=== PATIENT | male | born 1950 | race Caucasian/White ===

== ENCOUNTER 2024-04-07 15:53 | Inpatient (IN) | payer MEDICARE ==
[~2024-04-07] VITALS: Ht 177.8 cm; Wt 74.8 kg
[2024-04-07] MEDS ORDERED: OXYC1TAB12 PO (16:33)
[2024-04-07] MEDS ORDERED: CALC100067 PO (16:33)
[2024-04-07] MEDS ORDERED: TAMS-3 PO (16:33)
[2024-04-07] MEDS ORDERED: OXYC-875 PO (16:33)
[2024-04-07] MEDS ORDERED: METRONIDAZOLE 500 MG/NS 100ML 100 ML IV ONE (17:10)
[2024-04-07 17:15] LABS: BASOPHILS # (AUTO) 0.1 K/UL (0.0-0.2); BASOPHILS % (AUTO) 0.3 % (0.0-2.0); DIFFERENTIAL COMMENT 1; EOSINOPHILS # (AUTO) 0.2 K/uL (0.0-0.7); EOSINOPHILS % (AUTO) 0.6 % (0.0-7.0); HEMATOCRIT 25.2 % (36.7-47.1); HEMOGLOBIN 8.2 g/dL (12.5-16.3); MEAN CORPUSCULAR HEMOGLOBIN 26.3 uug (23.8-33.4); MEAN CORPUSCULAR HGB CONC 33 g/dL (32.5-36.3); MEAN CORPUSCULAR VOLUME 80.4 fL (73.0-96.2); MONOCYTES # (AUTO) 1.5 K/uL (0.1-1.30); MONOCYTES % (AUTO) 5.9 % (0.0-11.0); NEUTROPHILS # (AUTO) 23.4 K/uL (1.8-8.9); NEUTROPHILS % (AUTO) 89.2 % (38.5-71.5); PLATELET COUNT (AUTO) 316 K/uL (152-348); RED BLOOD CELL COUNT(AUTO) 3.14 MIL/uL (4.06-5.63); WHITE BLOOD COUNT (AUTO) 26.2 K/uL (3.6-10.2)
[2024-04-07] MEDS: METRONIDAZOLE 500 MG/NS 100 ML PIGGYBACK IV ONE (17:19)
[2024-04-07 17:26] LABS: AMMONIA 16 umol/L (11-32)
[2024-04-07 17:35] LABS: ETHANOL < 3 MG/DL (0-10)
[2024-04-07 17:39] LABS: CALCIUM 7.6 mg/dL (8.5-10.1); CARBON DIOXIDE 21 mmol/L (21-32); CHLORIDE 107 mmol/L (98-107); GLUCOSE 91 mg/dL (74-106); SODIUM SERUM 142 mmol/L (136-145)
[2024-04-07 17:42] LABS: POTASSIUM 6.9 mmol/L (3.5-5.1)
[2024-04-07 17:43] LABS: ACETAMINOPHEN 2.2 ug/mL (10-30); ALANINE AMINOTRANSFERASE < 6 U/L (16-63); ALBUMIN 1.7 g/dL (3.4-5.0); ALKALINE PHOSPHATASE 89 U/L (50-136); ASPARTATE AMINOTRANSFERASE 34 U/L (15-37); BILIRUBIN,DIRECT 0.1 mg/dL (0.0-0.2); CREATININE 8.8 mg/dL (0.6-1.3); TOTAL PROTEIN, SERUM 5.7 g/dL (6.4-8.2); UREA NITROGEN, BLOOD 106 mg/dL (7-18)
[2024-04-07 17:55] LABS: *BILIRUBIN,URIN NEGATIVE (NEGATIVE); *BLOOD, URINE 2+ (NEGATIVE); *CLARITY,URINE CLEAR (CLEAR); *COLOR,URINE YELLOW (YELLOW); *KETONES,URINE NEGATIVE (NEGATIVE); *PROTEIN,URINE NEGATIVE (NEGATIVE); *UROBILINOGEN,URINE 0.2 E.U./dl (NORMAL); LEUKOCYTE ESTERASE ,URINE NEGATIVE (NEGATIVE); NITRITE, URINE NEGATIVE (NEGATIVE); UGLUCOSE NEGATIVE (NEGATIVE)
[2024-04-07] MEDS ORDERED: ALBUTEROL SULFATE 2.5 MG/3 ML NEBU ONE (17:55)
[2024-04-07 17:58] LABS: WBC,URINE 0-3 /HPF (0-3)
[2024-04-07] MEDS: ALBUTEROL SULFATE 2.5 MG/3 ML NEBU NEB ONE (18:01)
[2024-04-07 18:03] VITALS: O2SAT 94
[2024-04-07 18:03] LABS: *AMPHETAMINE, URINE NEGATIVE (NEGATIVE); *BARBITURATE, URINE NEGATIVE (NEGATIVE); *BENZODIAZEPINE, URINE NEGATIVE (NEGATIVE); *CANNABINOID, URINE NEGATIVE (NEGATIVE); *COCCAINE, URINE NEGATIVE (NEGATIVE); *OPIATE, URINE POSITIVE (NEGATIVE); *PHENCYCLIDINE SCREEN,URINE NEGATIVE (NEGATIVE); FENTANYL, URINE NEGATIVE (NEGATIVE)
[2024-04-07] MEDS ORDERED: SODIUM POLYSTYRENE SULFONATE 15 G/60 ML LIQUID UDC ONE ×2 (18:09→18:12)
[2024-04-07] MEDS ORDERED: FUROSEMIDE 20 MG/2 ML VIAL ONE (18:09)
[2024-04-07] MEDS ORDERED: DEXTROSE 50% 50 ML DISP.SYRIN ONE (18:09)
[2024-04-07] MEDS ORDERED: SODIUM BICARBONATE 8.4% 50 MEQ/50 ML DISP.SYRIN IV ONE (18:09)
[2024-04-07] MEDS ORDERED: INSULIN REGULAR, HUMAN 1000 UNIT/10 ML VIAL ONE (18:10)
[2024-04-07 18:12] LABS: BILIRUBIN,TOTAL 0.4 mg/dL (0.2-1.0)
[2024-04-07] MEDS ORDERED: HALOPERIDOL LACTATE 5 MG/1 ML VIAL ONE (18:13)
[2024-04-07] MEDS ORDERED: diphenhydrAMINE 50 MG/1 ML VIAL ONE (18:13)
[2024-04-07] MEDS ORDERED: LORAZEPAM 2 MG/1 ML VIAL ONE (18:14)
[2024-04-07] MEDS: diphenhydrAMINE 50 MG/1 ML VIAL IV ONE (18:15)
[2024-04-07] MEDS: HALOPERIDOL LACTATE 5 MG/1 ML VIAL IV ONE (18:15)
[2024-04-07] MEDS: LORAZEPAM 2 MG/1 ML VIAL IV ONE (18:15)
[2024-04-07] MEDS ORDERED: ENOXAPARIN SODIUM 40 MG/0.4 ML DISP.SYRIN SQ SCH (18:30)
[2024-04-07] MEDS: FUROSEMIDE 20 MG/2 ML VIAL IVP ONE (18:30)
[2024-04-07] MEDS: DEXTROSE 50% 50 ML DISP.SYRIN IV ONE (18:30)
[2024-04-07] MEDS: SODIUM BICARBONATE 8.4% 50 MEQ/50 ML DISP.SYRIN IV ONE (18:30)
[2024-04-07] MEDS ORDERED: REMEDY ESSENTIAL ZINC PASTE 113 GM TP PRN (18:30)
[2024-04-07] MEDS ORDERED: ACETAMINOPHEN 325 MG TABLET PO PRN (18:30)
[2024-04-07] MEDS ORDERED: ONDANSETRON 4 MG/2 ML VIAL IV PRN (18:30)
[2024-04-07] MEDS ORDERED: MAGNESIUM HYDROXIDE 30 ML LIQUID UDC PO PRN (18:30)
[2024-04-07] MEDS: SODIUM POLYSTYRENE SULFONATE 15 G/60 ML LIQUID UDC PO ONE (18:31)
[2024-04-07] MEDS ORDERED: MEROPENEM 1GM/NS 100ML IVPB **ER PYXIS ONLY IV ONE (18:33)
[2024-04-07] MEDS: INSULIN REGULAR, HUMAN 1000 UNIT/10 ML VIAL IV ONE (18:33)
[2024-04-07] MEDS: MEROPENEM 1,000 MG in IV NORMAL SALINE 100 ML IV ONE (18:40)
[2024-04-07] MEDS: IV NORMAL SALINE 500 ML IV ONE ×2 (19:01→19:37)
[2024-04-07 19:53] LABS: CALCIUM 7.7 mg/dL (8.5-10.1); CARBON DIOXIDE 23 mmol/L (21-32); CHLORIDE 110 mmol/L (98-107); GLUCOSE 97 mg/dL (74-106); POTASSIUM 5.7 mmol/L (3.5-5.1); SODIUM SERUM 147 mmol/L (136-145)
[2024-04-07 19:55] LABS: CREATININE 8.2 mg/dL (0.6-1.3); UREA NITROGEN, BLOOD 101 mg/dL (7-18)
[2024-04-07 20:40] VITALS: O2SAT 98
[2024-04-07 21:30] VITALS: BP 105/52
[2024-04-07 22:00] VITALS: BP 95/51; TEMP 97.1
[2024-04-07] MEDS ORDERED: METRONIDAZOLE 500 MG/NS 100ML 200 ML IV ONE (22:35)
[2024-04-07] MEDS: IV NS 1000 ML 1,000 ML IV PRN (22:37)
[2024-04-07] MEDS: METRONIDAZOLE 500 MG/NS 100ML 500 MG in PREMIXED 1 EACH IV SCH (22:50)
[2024-04-07 23:00] VITALS: BP 108/52
[2024-04-08] VITALS (20 sets, daily range): BP systolic 102–143; BP diastolic 53–99; TEMP 97.1–98.6; O2SAT 94–98
[2024-04-08 05:29] LABS: BASOPHILS # (AUTO) 0.1 K/UL (0.0-0.2); BASOPHILS % (AUTO) 0.3 % (0.0-2.0); EOSINOPHILS # (AUTO) 0.1 K/uL (0.0-0.7); EOSINOPHILS % (AUTO) 0.5 % (0.0-7.0); HEMATOCRIT 25.1 % (36.7-47.1); HEMOGLOBIN 8.4 g/dL (12.5-16.3); LYMPHOCYTES # (AUTO) 0.9 K/uL (0.8-4.8); LYMPHOCYTES % (AUTO) 3.6 % (20.5-51.5); MEAN CORPUSCULAR HEMOGLOBIN 26.8 uug (23.8-33.4); MEAN CORPUSCULAR HGB CONC 34 g/dL (32.5-36.3); MEAN CORPUSCULAR VOLUME 79.9 fL (73.0-96.2); MONOCYTES # (AUTO) 1.2 K/uL (0.1-1.30); MONOCYTES % (AUTO) 4.9 % (0.0-11.0); NEUTROPHILS # (AUTO) 22.1 K/uL (1.8-8.9); NEUTROPHILS % (AUTO) 90.7 % (38.5-71.5); PLATELET COUNT (AUTO) 323 K/uL (152-348); RED BLOOD CELL COUNT(AUTO) 3.14 MIL/uL (4.06-5.63); RED CELL DISTRIBUTION WIDTH 19.6 % (12.1-16.2); WHITE BLOOD COUNT (AUTO) 24.4 K/uL (3.6-10.2)
[2024-04-08 05:53] LABS: CALCIUM 7.4 mg/dL (8.5-10.1); CARBON DIOXIDE 24 mmol/L (21-32); CHLORIDE 114 mmol/L (98-107); CREATININE 5.5 mg/dL (0.6-1.3); GLUCOSE 73 mg/dL (74-106); MAGNESIUM 2.1 mg/dL (1.8-2.4); PHOSPHOROUS 6.6 mg/dL (2.5-4.9); POTASSIUM 4.7 mmol/L (3.5-5.1); SODIUM SERUM 148 mmol/L (136-145); UREA NITROGEN, BLOOD 77 mg/dL (7-18)
[2024-04-08 06:04] LABS: DIFFERENTIAL COMMENT 1
[2024-04-08] MEDS ORDERED: ENOXAPARIN SODIUM 30 MG/0.3 ML DISP.SYRIN SUBCUT SCH (09:00)
[2024-04-08] MEDS: ENOXAPARIN SODIUM 30 MG/0.3 ML DISP.SYRIN SUBCUT SCH (10:44)
[2024-04-08 15:34] LABS: CALCIUM 7.5 mg/dL (8.5-10.1); CARBON DIOXIDE 24 mmol/L (21-32); CHLORIDE 115 mmol/L (98-107); CREATININE 3.6 mg/dL (0.6-1.3); GLUCOSE 96 mg/dL (74-106); POTASSIUM 4.1 mmol/L (3.5-5.1); SODIUM SERUM 153 mmol/L (136-145); UREA NITROGEN, BLOOD 55 mg/dL (7-18)
[2024-04-08] MEDS ORDERED: POLY17PO4 PO (16:58)
[2024-04-08] MEDS ORDERED: CALC117719 PO (17:02)
[2024-04-08] MEDS ORDERED: OXYCODONE/APAP 5-325 MG TABLET PO PRN (17:15)
[2024-04-08] MEDS ORDERED: MEROPENEM 1 G in IV NORMAL SALINE 100 ML IV SCH ×2 (18:00→21:00)
[2024-04-08] MEDS: IV 1/2NS 1000 ML 1,000 ML IV PRN (18:02)
[2024-04-08] MEDS: MEROPENEM 500 MG in IV NORMAL SALINE 50 ML IV SCH (20:07)
[2024-04-08] MEDS: LORAZEPAM 2 MG/1 ML VIAL IV PRN (23:43)
[2024-04-09] VITALS (15 sets, daily range): BP systolic 113–154; BP diastolic 55–124; TEMP 97.1–98.5; O2SAT 93–100
[2024-04-09 05:13] LABS: BASOPHILS # (AUTO) 0.1 K/UL (0.0-0.2); BASOPHILS % (AUTO) 0.3 % (0.0-2.0); EOSINOPHILS # (AUTO) 0.1 K/uL (0.0-0.7); EOSINOPHILS % (AUTO) 0.6 % (0.0-7.0); HEMATOCRIT 26.6 % (36.7-47.1); HEMOGLOBIN 8.6 g/dL (12.5-16.3); LYMPHOCYTES # (AUTO) 1.1 K/uL (0.8-4.8); LYMPHOCYTES % (AUTO) 4.7 % (20.5-51.5); MEAN CORPUSCULAR HEMOGLOBIN 26.5 uug (23.8-33.4); MEAN CORPUSCULAR HGB CONC 32 g/dL (32.5-36.3); MEAN CORPUSCULAR VOLUME 81.7 fL (73.0-96.2); MONOCYTES % (AUTO) 4.4 % (0.0-11.0); NEUTROPHILS # (AUTO) 20.7 K/uL (1.8-8.9); PLATELET COUNT (AUTO) 324 K/uL (152-348); RED BLOOD CELL COUNT(AUTO) 3.25 MIL/uL (4.06-5.63); RED CELL DISTRIBUTION WIDTH 19.7 % (12.1-16.2)
[2024-04-09 05:21] LABS: DIFFERENTIAL COMMENT 1
[2024-04-09 05:29] LABS: CALCIUM 7.4 mg/dL (8.5-10.1); CARBON DIOXIDE 24 mmol/L (21-32); CHLORIDE 118 mmol/L (98-107); CREATININE 2.1 mg/dL (0.6-1.3); GLUCOSE 65 mg/dL (74-106); MAGNESIUM 1.8 mg/dL (1.8-2.4); PHOSPHOROUS 3.8 mg/dL (2.5-4.9); POTASSIUM 3.7 mmol/L (3.5-5.1); SODIUM SERUM 152 mmol/L (136-145); UREA NITROGEN, BLOOD 37 mg/dL (7-18)
[2024-04-09] MEDS ORDERED: IV D5W 1000ML 1,000 ML IV ONE (08:00)
[2024-04-09] MEDS: IV D5W 1000ML 1,000 ML IV ONE (08:38)
[2024-04-09] MEDS: HEPARIN SODIUM,PORCINE 5,000 UNITS/ML VIAL SQ SCH (08:39)
[2024-04-09] MEDS: TAMSULOSIN HCL 0.4 MG CAP.SR.24H PO SCH (08:40)
[2024-04-09] MEDS: QUETIAPINE FUMARATE 25 MG TABLET PO PRN (17:23)
[2024-04-10] VITALS (9 sets, daily range): BP systolic 119–149; BP diastolic 65–78; TEMP 97–98.6; O2SAT 91–98
[2024-04-10 05:14] LABS: BASOPHILS # (AUTO) 0.1 K/UL (0.0-0.2); BASOPHILS % (AUTO) 0.2 % (0.0-2.0); EOSINOPHILS # (AUTO) 0.2 K/uL (0.0-0.7); EOSINOPHILS % (AUTO) 1.1 % (0.0-7.0); HEMATOCRIT 28.5 % (36.7-47.1); HEMOGLOBIN 9.3 g/dL (12.5-16.3); LYMPHOCYTES % (AUTO) 4.5 % (20.5-51.5); MEAN CORPUSCULAR HEMOGLOBIN 26.3 uug (23.8-33.4); MEAN CORPUSCULAR HGB CONC 33 g/dL (32.5-36.3); MEAN CORPUSCULAR VOLUME 80.5 fL (73.0-96.2); MONOCYTES # (AUTO) 1.3 K/uL (0.1-1.30); MONOCYTES % (AUTO) 5.9 % (0.0-11.0); NEUTROPHILS # (AUTO) 18.6 K/uL (1.8-8.9); NEUTROPHILS % (AUTO) 88.3 % (38.5-71.5); PLATELET COUNT (AUTO) 342 K/uL (152-348); RED BLOOD CELL COUNT(AUTO) 3.54 MIL/uL (4.06-5.63); RED CELL DISTRIBUTION WIDTH 19.1 % (12.1-16.2); WHITE BLOOD COUNT (AUTO) 21.1 K/uL (3.6-10.2)
[2024-04-10 05:30] LABS: DIFFERENTIAL COMMENT 1
[2024-04-10 05:38] LABS: CALCIUM 7.3 mg/dL (8.5-10.1); CARBON DIOXIDE 24 mmol/L (21-32); CHLORIDE 113 mmol/L (98-107); CREATININE 1.3 mg/dL (0.6-1.3); GLUCOSE 86 mg/dL (74-106); MAGNESIUM 1.6 mg/dL (1.8-2.4); PHOSPHOROUS 2.1 mg/dL (2.5-4.9); POTASSIUM 3.5 mmol/L (3.5-5.1); SODIUM SERUM 145 mmol/L (136-145); UREA NITROGEN, BLOOD 23 mg/dL (7-18)
[2024-04-10] MEDS: MAGNESIUM SULFATE/D5W 100 ML IV SCH (10:05)
[2024-04-10] MEDS: MEROPENEM 1 G in IV NORMAL SALINE 100 ML IV SCH (15:38)
[2024-04-10] MEDS: NEUTRA PHOS PACKET PO ONE (17:16)
[2024-04-10] MEDS: TAMSULOSIN HCL 0.4 MG CAP.SR.24H PO SCH (21:24)
[2024-04-11 04:00] VITALS: BP 127/72; O2SAT 95
[2024-04-11 06:20] LABS: CALCIUM 7.2 mg/dL (8.5-10.1); CARBON DIOXIDE 23 mmol/L (21-32); CHLORIDE 111 mmol/L (98-107); CREATININE 1.1 mg/dL (0.6-1.3); GLUCOSE 79 mg/dL (74-106); MAGNESIUM 1.6 mg/dL (1.8-2.4); PHOSPHOROUS 2.4 mg/dL (2.5-4.9); POTASSIUM 3.3 mmol/L (3.5-5.1); SODIUM SERUM 144 mmol/L (136-145); UREA NITROGEN, BLOOD 13 mg/dL (7-18)
[2024-04-11 08:00] VITALS: BP 125/64; TEMP 98.7; O2SAT 93
[2024-04-11 12:00] VITALS: BP 116/72; TEMP 98; O2SAT 93
[2024-04-11] MEDS: POTASSIUM CHLORIDE 20 MEQ TAB.PRT.SR PO ONE (12:17)
[2024-04-11] MEDS: MAGNESIUM OXIDE 400 MG TABLET PO ONE (12:17)
[2024-04-11 16:00] VITALS: BP 125/64; TEMP 98.1; O2SAT 93
[2024-04-11] MEDS ORDERED: NEUTRA PHOS PACKET PO ONE (16:45)
[2024-04-11] MEDS: SODIUM PHOSPHATE MM 15 MMOL in IV NORMAL SALINE 250 ML IV ONE (17:11)
[2024-04-11] MEDS: ENSURE ENLIVE (VAN) 240 ML LIQUID PO SCH (17:14)
[2024-04-11 20:00] VITALS: BP 142/67; TEMP 98; O2SAT 99
[2024-04-11 22:00] VITALS: BP 146/74; O2SAT 99
[2024-04-12 00:01] VITALS: BP 132/63; TEMP 98.2; O2SAT 99
[2024-04-12 02:00] VITALS: BP 143/64; O2SAT 99
[2024-04-12 04:00] VITALS: BP 131/59; TEMP 98; O2SAT 97
[2024-04-12 04:39] LABS: BASOPHILS % (AUTO) 0.2 % (0.0-2.0); EOSINOPHILS # (AUTO) 0.1 K/uL (0.0-0.7); EOSINOPHILS % (AUTO) 0.6 % (0.0-7.0); HEMATOCRIT 26.2 % (36.7-47.1); HEMOGLOBIN 8.9 g/dL (12.5-16.3); LYMPHOCYTES # (AUTO) 0.8 K/uL (0.8-4.8); LYMPHOCYTES % (AUTO) 5.4 % (20.5-51.5); MEAN CORPUSCULAR HGB CONC 34 g/dL (32.5-36.3); MEAN CORPUSCULAR VOLUME 79.8 fL (73.0-96.2); MONOCYTES # (AUTO) 1.2 K/uL (0.1-1.30); MONOCYTES % (AUTO) 7.9 % (0.0-11.0); NEUTROPHILS # (AUTO) 13.4 K/uL (1.8-8.9); NEUTROPHILS % (AUTO) 85.9 % (38.5-71.5); PLATELET COUNT (AUTO) 286 K/uL (152-348); RED BLOOD CELL COUNT(AUTO) 3.29 MIL/uL (4.06-5.63); RED CELL DISTRIBUTION WIDTH 19.1 % (12.1-16.2); WHITE BLOOD COUNT (AUTO) 15.6 K/uL (3.6-10.2)
[2024-04-12 04:45] LABS: DIFFERENTIAL COMMENT 1
[2024-04-12 04:50] LABS: CALCIUM 7.3 mg/dL (8.5-10.1); CARBON DIOXIDE 23 mmol/L (21-32); CHLORIDE 115 mmol/L (98-107); CREATININE 1.1 mg/dL (0.6-1.3); GLUCOSE 100 mg/dL (74-106); POTASSIUM 3.2 mmol/L (3.5-5.1); SODIUM SERUM 148 mmol/L (136-145); UREA NITROGEN, BLOOD 13 mg/dL (7-18)
[2024-04-12 04:54] LABS: MAGNESIUM 1.7 mg/dL (1.8-2.4); PHOSPHOROUS 2.9 mg/dL (2.5-4.9)
[2024-04-12 06:00] VITALS: BP 129/67; O2SAT 98
[2024-04-12 11:20] VITALS: BP 99/53; TEMP 97.5; O2SAT 96
[2024-04-12] MEDS: MAGNESIUM OXIDE 400 MG TABLET PO ONE (13:52)
[2024-04-12] MEDS: POTASSIUM CHLORIDE 20 MEQ TAB.PRT.SR PO ONE (13:52)
== END 2024-04-12 15:40 | DRG 871 ==
LOC: ER 16:00 → CCU 20:12 → MEDSURG3 04-12 08:57
PROVIDERS: ADMIT Student in an Organized Health Care Education/Training Program; ATTEND Student in an Organized Health Care Education/Training Program
PROC: 0T9B70Z Drainage of Bladder with Drainage Device, Via Natural or Artificial Opening (ICD-10-PCS; principal; 2024-04-07)
DX: A41.9 Sepsis, unspecified organism (principal); E43 Unspecified severe protein-calorie malnutrition; N17.0 Acute kidney failure with tubular necrosis; G93.41 Metabolic encephalopathy; C18.9 Malignant neoplasm of colon, unspecified; N13.8 Other obstructive and reflux uropathy; N13.2 Hydronephrosis with renal and ureteral calculous obstruction; E87.0 Hyperosmolality and hypernatremia; C78.5 Secondary malignant neoplasm of large intestine and rectum; C78.00 Secondary malignant neoplasm of unspecified lung; E87.5 Hyperkalemia; N49.2 Inflammatory disorders of scrotum; Z93.3 Colostomy status; N40.1 Benign prostatic hyperplasia with lower urinary tract symptoms; N43.3 Hydrocele, unspecified; R33.8 Other retention of urine; E88.09 Other disorders of plasma-protein metabolism, not elsewhere classified; K21.9 Gastro-esophageal reflux disease without esophagitis; R09.02 Hypoxemia; R94.6 Abnormal results of thyroid function studies; Z90.49 Acquired absence of other specified parts of digestive tract; Z53.29 Procedure and treatment not carried out because of patient's decision for other reasons; Z79.899 Other long term (current) drug therapy; I51.7 Cardiomegaly; R26.2 Difficulty in walking, not elsewhere classified; Z66 Do not resuscitate
CPT/HCPCS: 36415; 70450; 71045; 76770; 76870; 83605; 83735; 84100; 84443; 84484; 85025; 85730; 87040; A4606; A4663; A6209; A6213; G0378; G0480; J1200; J1630; J1644; J1650; J1815; J1940; J2060; J2185; J3475; J3490; J7040; J7070